=== PATIENT | female | born 1995 | race Caucasian/White ===

== ENCOUNTER 2023-08-07 07:02 | Emergency (ER) | payer BC ==
[~2023-08-07] VITALS: Ht 162.6 cm; Wt 63.5 kg
[2023-08-07 09:53] LABS: HEMATOCRIT 33.2 % (36.0-45.00); HEMOGLOBIN 10.9 g/dL (12.0-15.00); MEAN CELL VOLUME 83.9 fL (80.00-100.00); MEAN CORPUSCULAR HEMOGLOBIN 27.6 pg (27.00-32.0); MEAN CORPUSCULAR HGB CONC 32.8 g/dl (32.0-36.0); PLATELET COUNT 417 K/uL (150-450); RED BLOOD COUNT 3.95 M/uL (4.00-6.00); RED CELL DISTRIBUTION WIDTH 16.3 % (11.5-14.5)
[2023-08-07 09:54] LABS: URINE APPEARANCE Clear; URINE BACTERIA 2227.4 uL (0.0-1933); URINE BILIRRUBIN Negative (NEGATIVE); URINE BLOOD Negative; URINE COLOR Yellow; URINE GLUCOSE Negative (NEGATIVE); URINE LEUKOCYTE Trace; URINE NITRATE Negative; URINE PROTEIN Negative (NEGATIVE); URINE RBC 11.7 uL (0.0-20.8); URINE UROBILINOGEN 0.2 E.U./dl; URINE WBC 22.8 uL (0.0-23.2)
== END 2023-08-07 11:17 | disposition home or self-care (01) ==
LOC: ER 07:03
PROVIDERS: General Practice
DX: N39.0 Urinary tract infection, site not specified (principal)

== ENCOUNTER 2023-08-09 05:27 | Emergency (ER) | payer BC ==
[~2023-08-09] VITALS: Ht 162.6 cm; Wt 63.5 kg
[2023-08-09] MEDS ORDERED: MACROBID 100 M100 MG (05:38)
[2023-08-09 09:26] LABS: HEMATOCRIT 36.1 % (36.0-45.00); HEMOGLOBIN 11.9 g/dL (12.0-15.00); MEAN CORPUSCULAR HEMOGLOBIN 27.3 pg (27.00-32.0); MEAN CORPUSCULAR HGB CONC 32.9 g/dl (32.0-36.0); PLATELET COUNT 443 K/uL (150-450); RED BLOOD COUNT 4.35 M/uL (4.00-6.00); RED CELL DISTRIBUTION WIDTH 16.7 % (11.5-14.5)
[2023-08-09 09:27] LABS: URINE APPEARANCE Cloudy; URINE BILIRRUBIN Negative (NEGATIVE); URINE BLOOD Negative; URINE COLOR Dark Yellow; URINE GLUCOSE Negative (NEGATIVE); URINE LEUKOCYTE Small; URINE NITRATE Negative; URINE PROTEIN 30 (NEGATIVE)
[2023-08-09 09:30] LABS: URINE BACTERIA 3472.4 uL (0.0-1933); URINE EPITHELIAL CELLS 77.1 uL (0.0-38.8); URINE RBC 36.3 uL (0.0-20.8); URINE WBC 34.4 uL (0.0-23.2)
[2023-08-09 10:16] LABS: ALBUMIN 4.1 gm/dL (3.4-5.0); BILIRUBIN TOTAL 0.26 mg/dL (0.3-1.2); CALCIUM 9.1 mg/dL (8.5-10.1); CREATININE SERUM 0.79 mg/dL (0.55-1.02); GFR 87.3; GLOBULINA 4.5 G/DL (2.4-3.5); POTASSIUM 3.41 mEq/L (3.5-5.1); TOTAL PROTEIN 8.6 gm/dL (6.4-8.2)
[2023-08-09 10:31] LABS: URINE MUCUS MODERATE
[2023-08-09] MEDS ORDERED: CIPRO500 MG PO (10:38)
== END 2023-08-09 10:44 | disposition home or self-care (01) ==
LOC: ER 05:28
PROVIDERS: General Practice
DX: N39.0 Urinary tract infection, site not specified (principal)